=== PATIENT | female | born 1970 | race Caucasian/White ===

== ENCOUNTER → 2016-07-14 | Outpatient (CLI) | payer BC ==
--- NOTE | 2016-07-15 09:51 | MM ---
Reason for exam: screening (asymptomatic). Last mammogram was performed 1 year ago. History: Family history of breast cancer in mother at age 68. Took hormonal contraceptives for 2 years beginning at age 19. Physical Findings: A clinical breast exam by your physician is recommended on an annual basis and results should be correlated with mammographic findings. MG Screening Mammo w CAD Bilateral CC and MLO view(s) were taken. Prior study comparison: July 03, 2015, bilateral MG screening mammo w CAD. December 11, 2013, bilateral MG diagnostic mammo w CAD DAXA. The breast tissue is heterogeneously dense. This may lower the sensitivity of mammography. There is no discrete abnormality. No significant changes when compared with prior studies. ASSESSMENT: Negative, BI-RAD 1 RECOMMENDATION: Routine screening mammogram of both breasts in 1 year.
== END | disposition home or self-care (01) ==
LOC: RADMAMWWP 13:10
PROVIDERS: ATTEND Family Medicine
DX: Z12.31 Encounter for screening mammogram for malignant neoplasm of breast (principal)

== ENCOUNTER → 2018-10-13 | Outpatient (CLI) | payer BC ==
--- NOTE | 2018-10-17 08:09 | MM ---
Reason for exam: screening (asymptomatic). Last mammogram was performed 2 years and 3 months ago. History: Family history of breast cancer in mother at age 68. Took hormonal contraceptives for 2 years beginning at age 19. Physical Findings: A clinical breast exam by your physician is recommended on an annual basis and results should be correlated with mammographic findings. MG Screening Mammo w CAD Bilateral CC and MLO view(s) were taken. Prior study comparison: July 14, 2016, bilateral MG screening mammo w CAD. July 03, 2015, bilateral MG screening mammo w CAD. There are scattered fibroglandular densities. Finding: There are calcifications in the 6 o'clock middle position of the right breast 7cm from the nipple. New finding since July 14, 2016. ASSESSMENT: Incomplete: need additional imaging evaluation, BI-RAD 0 RECOMMENDATION: Special view mammogram of the right breast. [facility] will attempt to contact patient to return for supplemental views.
== END | disposition home or self-care (01) ==
LOC: RADMAMWWP 08:25
PROVIDERS: ATTEND Family Medicine
DX: Z12.31 Encounter for screening mammogram for malignant neoplasm of breast (principal)
CPT/HCPCS: 77067

== ENCOUNTER → 2018-10-25 | Outpatient (CLI) | payer BC ==
--- NOTE | 2018-10-25 10:08 | MM ---
Reason for exam: additional evaluation requested from abnormal screening. Last mammogram was performed less than 1 month ago. History: Family history of breast cancer in mother at age 68. Took hormonal contraceptives for 2 years beginning at age 19. Physical Findings: Nurse did not find any significant physical abnormalities on exam. MG Work Up Mamm w CAD RT CC with magnification and LM with magnification view(s) were taken of the right breast. Prior study comparison: October 13, 2018, bilateral MG screening mammo w CAD. July 14, 2016, bilateral MG screening mammo w CAD. The breast tissue is heterogeneously dense. This may lower the sensitivity of mammography. Finding: There are typically benign dystrophic, round, grouped/clustered calcifications in the lower outer quadrant, posterior middle position of the right breast. These results were verbally communicated with the patient and result sheet given to the patient on 10/25/18. ASSESSMENT: Benign, BI-RAD 2 RECOMMENDATION: Return to routine screening mammogram schedule for both breasts.
== END | disposition home or self-care (01) ==
LOC: RADMAMWWP 08:56
PROVIDERS: ATTEND Family Medicine
DX: R92.8 Other abnormal and inconclusive findings on diagnostic imaging of breast (principal)
CPT/HCPCS: 77065

== ENCOUNTER → 2021-03-28 | Outpatient (CLI) | payer BC ==
--- NOTE | 2021-04-01 10:40 | MM ---
Reason for exam: screening (asymptomatic). Last mammogram was performed 2 years and 5 months ago. History: Family history of breast cancer in mother at age 68. Took hormonal contraceptives for 2 years beginning at age 19. Physical Findings: A clinical breast exam by your physician is recommended on an annual basis and results should be correlated with mammographic findings. MG Screening Mammo w CAD Bilateral CC and MLO view(s) were taken. Prior study comparison: October 25, 2018, right breast MG work up mamm w CAD RT. October 13, 2018, bilateral MG screening mammo w CAD. The breast tissue is heterogeneously dense. This may lower the sensitivity of mammography. Lateral asymmetric density right CC view is more defined. Stable superior asymmetric density left breast. ASSESSMENT: Incomplete: need additional imaging evaluation, BI-RAD 0 RECOMMENDATION: Special view mammogram of the right breast. (3D) If lesion persists on supplemental views, image directed ultrasound is recommended. [facility] will attempt to contact patient to return for supplemental views and ultrasound if indicated.
== END | disposition home or self-care (01) ==
LOC: RADMAMWWP 11:55
PROVIDERS: ATTEND Family Medicine
DX: Z09 Encounter for follow-up examination after completed treatment for conditions other than malignant neoplasm (principal); Z80.3 Family history of malignant neoplasm of breast
CPT/HCPCS: 77067

== ENCOUNTER → 2021-04-04 | Outpatient (CLI) | payer BC ==
--- NOTE | 2021-04-07 09:55 | MM ---
Reason for exam: additional evaluation requested from abnormal screening. Last mammogram was performed less than 1 month ago. History: Family history of breast cancer in mother at age 68. Took hormonal contraceptives for 2 years beginning at age 19. Physical Findings: Nurse did not find any significant physical abnormalities on exam. MG Work Up Mamm w CAD RT Spot compression CC, spot compression CCRM, and LM view(s) were taken of the right breast. Prior study comparison: March 28, 2021, bilateral MG screening mammo w CAD. October 25, 2018, right breast MG work up mamm w CAD RT. The breast tissue is heterogeneously dense. This may lower the sensitivity of mammography. No distinct lesion persists on additional view acquired. These results were verbally communicated with the patient and result sheet given to the patient on 04/04/21. ASSESSMENT: Benign, BI-RAD 2 RECOMMENDATION: Return to routine screening mammogram schedule for both breasts.
== END | disposition home or self-care (01) ==
LOC: RADMAMWWP 09:41
PROVIDERS: ATTEND Family Medicine
DX: R92.8 Other abnormal and inconclusive findings on diagnostic imaging of breast (principal)
CPT/HCPCS: 77065

== ENCOUNTER → 2023-10-15 | Outpatient (CLI) | payer BC ==
--- NOTE | 2023-10-15 18:31 | BD ---
EXAMINATION TYPE: Axial Bone Density DATE OF EXAM: 10/15/2023 CLINICAL HISTORY: 53 years old Female. ICD-10 CODE: Z78.0 ASYMP ARTHUR STATE Height: 62.2 Weight: 216 FRAX RISK QUESTIONS: Family History (Parent hip fracture): yes, mother with replacement Secondary Osteoporosis: yes 3. Menopause before 45: yes, 44 ablation, and symptoms Current Tobacco Use: yes RISK FACTORS HISTORY OF: nothing to note here MEDICATIONS: bp meds, anxiety meds, cholesterol, vit d and calcium EXAM MEASUREMENTS: Bone mineral densitometry was performed using the [employer]. Bone mineral density as measured about the Lumbar spine is: ----- L1-L4(G/cm2): 1.473 T Score Values are as follows: ----- L1: 1.5 ----- L2: 2.8 ----- L3: 2.4 ----- L4: 2.9 ----- L1-L4: 2.4 Z Score Values are as follows: ----- L1: 1.1 ----- L2: 2.4 ----- L3: 2.0 ----- L4: 2.5 ----- L1-L4: 2.0 Bone mineral density is a baseline study for this patient. Bone mineral density about the R hip (g/cm2): 1.280 Bone mineral density about the L hip (g/cm2): 1.322 T Score values are as follows: -----R Neck: 0.4 -----L Neck: 0.4 -----R Total: 2.2 -----L Total: 2.5 Z Score values are as follows: -----R Neck: 0.6 -----L Neck: 0.7 -----R Total: 2.0 -----L Total: 2.3 Bone mineral density is her first dexa study, baseline. FRAX%s: The graph provided illustrates a 7.9% chance for a major osteoporotic fx and a 0.1% chance fo r the hips probability for fx in 10 years time. IMPRESSION: Normal (Values between +1 and -1 indicate normal bone mass). Consider repeating this study in 5 year s or sooner if there is some new clinical indication. NOTE: T-SCORE=SD OF THE YOUNG ADULT MEAN.
--- NOTE | 2023-10-15 18:51 | MM ---
Reason for Exam: Screening (asymptomatic). Last mammogram was performed 2 year(s) and 7 month(s) ago. Patient History: Menarche at age 12. First Full-Term at age 19. Hormonal Contraceptives for 2 years from age 19 until age 21. Mother had breast cancer, age 68. Risk Values: Manjula 5 year model risk: 2.0%. NCI Lifetime model risk: 15.3%. Prior Study Comparison: 10/25/2018 Right Diagnostic Mammogram, [facility]. 03/28/2021 Bilateral Screening Mammogram, [facility]. 04/04/2021 Right Diagnostic Mammogram, [facility]. Tissue Density: The breasts are heterogeneously dense, which may obscure small masses. Findings: Analyzed By CAD. Unchanged asymmetric density superior left breast anterior depth. There is no suspicious group of microcalcifications or new suspicious mass in either breast. Overall Assessment: Benign, BI-RAD 2 Management: Screening Mammogram of both breasts in 1 year. . Patient should continue monthly self-breast exams. A clinical breast exam by your physician is recommended on an annual basis. This exam should not preclude additional follow-up of suspicious palpable abnormalities. Note on Manjula scores and lifetime risk: 1. A Manjula score greater than 3% is considered moderate risk. If this is the case, consider specialist referral to assess eligibility for a risk reducing agent. 2. If overall lifetime risk for the development of breast cancer is 20% or higher, the patient may qualify for future screening with alternating mammogram and breast MRI. Electronically signed and approved by: Gopal Ferraro M.D. Radiologist
== END | disposition home or self-care (01) ==
LOC: RADMAMWWP 08:00
PROVIDERS: ATTEND Family Medicine
DX: Z12.31 Encounter for screening mammogram for malignant neoplasm of breast (principal); Z80.3 Family history of malignant neoplasm of breast; Z78.0 Asymptomatic menopausal state
CPT/HCPCS: 77063; 77067; 77080

== ENCOUNTER → 2024-09-28 | Outpatient (CLI) | payer BC ==
--- NOTE | 2024-09-28 11:19 | XR ---
EXAMINATION TYPE: XR chest 2V DATE OF EXAM: 09/28/2024 CLINICAL INDICATION: Female, 54 years old with history of PRE SURGICAL Z01.818, TECHNIQUE: Frontal and lateral views of the chest are obtained. COMPARISON: None FINDINGS: There is no focal air space opacity, pleural effusion, or pneumothorax seen. The cardiac silhouette size is upper limits of normal. The osseous structures are intact. IMPRESSION: No acute cardiopulmonary process. [facility], , 09/28/2024 11:16 AM
[2024-09-28 12:03] LABS: INR 0.9 (<1.2); Partial Thromboplastin Time 23.3 sec (22.0-30.0); Prothrombin Time 9.9 sec (10.0-12.5)
[2024-09-28 15:35] LABS: HCT 46.2 % (37.2-46.3); HGB 15.4 g/dL (12.0-15.0); MCH 31.3 pg (27.0-32.0); MCHC 33.3 g/dL (32.0-37.0); MCV 93.9 FL (80.0-97.0); Mean Platelet Volume 12.5 FL (9.5-12.2); NRBC Per 100 WBC 0 X 10*3/uL (0.00-0.01); Platelet Count 189 X 10*3/uL (140-440); RBC 4.92 X 10*6/uL (4.10-5.20); RDW 13.2 % (11.5-14.5); WBC 7.97 X 10*3/uL (4.50-10.00)
[2024-09-28 18:26] LABS: Appearance,Urine Turbid (Clear); Bilirubin,Urine Negative (Negative); Blood,Urine Negative (Negative); Color,Urine Yellow (Yellow); Ketones,Urine Trace (Negative); Nitrite,Urine Negative (Negative); Specific Gravity,Urine 1.024 (1.001-1.030)
[2024-09-28 18:36] LABS: Bacteria,Urine Trace (None Seen)
[2024-09-28 20:36] LABS: BUN/Creat Ratio 16.75 Ratio (12.00-20.00); Blood Urea Nitrogen 13.4 mg/dL (9.0-27.0); Calcium 9.6 mg/dL (8.7-10.3); Carbon Dioxide 22.6 mmol/L (21.6-31.8); Chloride 105 mmol/L (96-109); Glucose 119 mg/dL (70-110); Potassium 4.5 mmol/L (3.5-5.5); Sodium 143 mmol/L (135-145)
== END | disposition home or self-care (01) ==
LOC: LABPAT 10:38
PROVIDERS: ATTEND Orthopaedic Surgery Orthopaedic Surgery of the Spine
DX: Z01.818 Encounter for other preprocedural examination (principal)
CPT/HCPCS: 71046; 80048; 81001; 85027; 85610; 85730

== ENCOUNTER → 2024-11-15 | Outpatient (CLI) | payer BC ==
--- NOTE | 2024-11-15 12:43 | MM ---
Reason for Exam: Screening (asymptomatic). Last mammogram was performed 1 year(s) and 1 month(s) ago. Patient History: Menarche at age 12. First Full-Term at age 19. Postmenopausal. Hormonal Contraceptives for 2 years from age 19 until age 21. Mother had breast cancer, age 68. Risk Values: Manjula 5 year model risk: 2.1%. NCI Lifetime model risk: 15.0%. Prior Study Comparison: 03/28/2021 Bilateral Screening Mammogram, [facility]. 04/04/2021 Right Diagnostic Mammogram, [facility]. 10/15/2023 Bilateral MG 3D screening mammo w/cad, [facility]. Tissue Density: The breasts are heterogeneously dense, which may obscure small masses. Findings: Analyzed By CAD. A few small benign-appearing round calcifications bilaterally are redemonstrated. There is no suspicious group of microcalcifications or new suspicious mass in either breast. Overall Assessment: Benign, BI-RAD 2 Management: Screening Mammogram of both breasts in 1 year. . Patient should continue monthly self-breast exams. A clinical breast exam by your physician is recommended on an annual basis. This exam should not preclude additional follow-up of suspicious palpable abnormalities. Note on Manjula scores and lifetime risk: 1. A Manjula score greater than 3% is considered moderate risk. If this is the case, consider specialist referral to assess eligibility for a risk reducing agent. 2. If overall lifetime risk for the development of breast cancer is 20% or higher, the patient may qualify for future screening with alternating mammogram and breast MRI. [facility], , 11/15/2024 9:49 AM. Electronically signed and approved by: Matheus Mccullough M.D.
== END | disposition home or self-care (01) ==
LOC: RADMAMWWP 07:30
PROVIDERS: ATTEND Family Medicine
DX: Z12.31 Encounter for screening mammogram for malignant neoplasm of breast (principal); R92.333 Mammographic heterogeneous density, bilateral breasts; R92.1 Mammographic calcification found on diagnostic imaging of breast; Z80.3 Family history of malignant neoplasm of breast; Z78.0 Asymptomatic menopausal state; Z92.0 Personal history of contraception
CPT/HCPCS: 77063; 77067